=== PATIENT | female | born 1950 | race Caucasian/White ===

== ENCOUNTER 2020-01-03 12:37 | Emergency (ER) | payer BC, OTHER ==
[~2020-01-03] VITALS: Ht 165.1 cm; Wt 63.0 kg
[2020-01-03] MEDS ORDERED: cloNIDine HCL 0.1 MG TAB PO ONE ×2 (13:30→14:45)
[2020-01-03 14:04] LABS: Basophils # (auto) 0.1 10 ^3/uL (0-0.2); Basophils % (auto) 0.9 % (0.0-2.0); Eosinophils # (auto) 0.2 10 ^3/uL (0-0.8); Eosinophils % (auto) 2.4 % (0.0-7.0); Hematocrit 44.3 % (36.0-46.0); Lymphocytes # (auto) 1.3 10 ^3/uL (0.4-5.4); Lymphocytes % (auto) 18.7 % (10.0-50.0); Mean Corpuscular Hemoglobin 32.6 pg (28.0-32.0); Mean Corpuscular Hgb Conc. 33.9 g/dL (32.0-36.0); Mean Corpuscular Volume 96.4 fL (80.0-100.0); Monocytes # (auto) 0.5 10 ^3/uL (0-1.3); Monocytes % (auto) 6.8 % (0.0-12.0); Neutrophils # (auto) 4.9 10 ^3/uL (1.6-8.6); Neutrophils % (auto) 71.2 % (37.0-80.0); Nucleated Red Blood Cells % 0.1 %; Platelet Count (auto) 202 10^3/uL (140-450); Red Cell Distribution Width 13.6 % (11.8-14.3); White Blood Cell 6.9 10^3/uL (4.4-10.8)
[2020-01-03 14:22] LABS: Albumin 3.8 g/dL (3.4-5.0); Anion Gap 6 (5-15); Blood Urea Nitrogen 14 mg/dL (7-18); Calcium 8.7 mg/dL (8.5-10.1); Carbon Dioxide 24 mmol/L (21-32); Chloride 110 mmol/L (98-107); Glucose 92 mg/dL (74-106); Potassium 4.1 mmol/L (3.5-5.1); Sodium 140 mmol/L (136-145)
[2020-01-03 14:28] LABS: Alanine Aminotransferase 24 U/L (13-56); Alkaline Phosphatase 120 U/L (45-117); Aspartate Aminotransferase 19 U/L (15-37); BUN/Creatinine Ratio 18.9; Bilirubin, Total 0.4 mg/dL (0.2-1.0); GFR African American 99 mL/min; GFR Non-African American 82 mL/min; Total Protein 7.5 g/dL (6.4-8.2)
[2020-01-03 15:54] VITALS: BP 157/91
== END 2020-01-03 16:42 | disposition home or self-care (01) ==
LOC: ER 12:37
DX: I10 Essential (primary) hypertension (principal); F41.9 Anxiety disorder, unspecified
CPT/HCPCS: 36415; 80053; 83880; 84484; 85025; 93005